=== PATIENT | male | born 1935 | race Caucasian/White ===

== ENCOUNTER 2017-04-24 05:17 | Day surgery (SDC) | payer MEDICARE, BC ==
[2017-04-21 10:21] VITALS: Ht 175.3 cm; Wt 86.6 kg
--- NOTE | 2017-04-23 15:28 | HP ---
Date/Time of Note Date/Time of Note DATE: 04/23/17 TIME: 15:25 Assessment/Plan VTE Prophylaxis VTE Prophylaxis Intervention: other HPI/ROS Admit Date/Time Admit Date/Time April 24, 2017 Hx of Present Illness Chief complaint: Left shoulder pain History: Mr. Friedman is a 82-year-old right-handed gentleman who is being admitted for rotator cuff surgery. He has a long history of ongoing shoulder pain. Past medical history: includes a history of cardiac events as well as prostate surgery for a cancer in the past. He also has a history of cardiac bypass as well as a total hip replacement. Social history/family history: He is a former smoker from [id number]. He drinks occasionally. He lives with his family and is . Medications: 1. Pantoprazole 2. Furosemide 3. Amiodarone 4. Atorvastatin 5. Aspirin 6. Entresto ALLERGIES: None Physical examination: The patient is healthy appearing in no respiratory distress who is alert and oriented with normal mood and affect. Hearing is intact; no hearing aid. No rashes or lesions noted. Cardiovascular and Neurological exam is intact with no numbness, edema with normal pulses and coordination. No lymphadenopathy or erythema is noted. He is 5 foot 9 inches tall and weighs 190 pounds. Cervical spine range of motion reveals full motion with right and left rotation , flexion and extension without significant asymmetry to either side. upper extremity evaluation reveals that the patient is neurologically intact from C5 to T1. There is no lymphedema and there is normal skin. There are 2+ ulnar and radial pulses with normal capillary refill. Active Range of motion is as follows: 120 Forward Flexion 80 Abduction 70 External Rotation 10 Internal Rotation Passive Range of motion is about the same and moderate subacromial crepitus is present. There is mild anterior pain and moderate lateral pain. There is pain in the bicipital groove. There is biceps deformity. There is pain over the AC joint. Instability assessment reveals that he has anterior translation, posterior translation and inferior translation. There is a apprehension, with a relocation sign. There is a OBriens sign Assessment of the rotator cuff reveals strength for the supraspinatus. Infraspinatus strength is and subscapularis strength is . There is a impingement sign. There is some mild atrophy in the supraspinatus fossa. Impression: Symptomatic rotator cuff tear and an active 82-year-old Plan: Surgery in the form of an arthroscopic rotator cuff repair. The patient has undergone cardiac clearance and he has no contraindications. PMH/Family/Social Past Medical History Medical History: no pertinent history Exam/Review of Systems Medications Medications Current Medications Cefazolin Sodium/ Dextrose (Ancef 2 Gm/50 ml (Pmx)) 50 ml @ 100 mls/hr PRE-OP IVPB ; Start 04/24/17 at 06:30; Stop 04/24/17 at 16:00 Tramadol HCl (Ultram) 50 mg PRE-OP PO ; Start 04/24/17 at 06:30; Stop at 16:00 Gabapentin 100 mg 100 mg PRE-OP PO ; Start 04/24/17 at 06:30; Stop 04/24/17 at 16:00 Tranexamic Acid/ Dextrose (Tranexamic Acid/ D5W) 108.7 ml @ 200 mls/hr PRE-OP IVPB ; Start 04/24/17 at 06:30; Stop 04/24/17 at 16:00 LETI ESQUEDA MD Apr 23, 2017 15:28
[~2017-04-24] VITALS: Ht 175.3 cm; Wt 86.6 kg
[2017-04-24] VITALS (10 sets, daily range): BP systolic 107–172; BP diastolic 51–77; PULSE 62–68; RESP 13–19
--- NOTE | 2017-04-24 04:58 | HPN ---
Date/Time of Note Date/Time of Note DATE: 04/24/17 TIME: 04:58 Interval H&P Admission Note Pt. seen H&P reviewed: No system changes LETI ESQUEDA MD Apr 24, 2017 04:58
[~2017-04-24 05:17] MED LIST: AMIO200T2 PO; ASPI-664 PO; ATOR40TA68 PO; BISO5TAB21 PO; FURO20TA3 PO; PANT40TA4 PO; RANO10002 PO; SACU1TAB7 PO; TAMS0.4C2 PO
--- NOTE | 2017-04-24 06:15 | RADRPT ---
PROCEDURE: XR Chest. CLINICAL INDICATION: Preop TECHNIQUE: AP Portable chest. COMPARISON: No pertinent prior examinations were submitted for comparison. FINDINGS: Left-sided ICD and sternotomy wires are visualized. The cardiomediastinal silhouette is normal.The aortic arch is calcified. No focal consolidation, ple ural effusion or pneumothorax is seen. The bones are demineralized. IMPRESSION: No radiographic evidence of acute cardiopulmonary disease. Aortic atherosclerosis. Prior CABG. Physician Krissy Date Time Electronically viewed and signed by Physician Krissy on 04/24/2017 06:15 CS/
[2017-04-24] MEDS ORDERED: traMADol 50 MG TAB PO SCH (06:30)
[2017-04-24] MEDS ORDERED: GABAPENTIN 100 MG CAP PO ONE (06:30)
[2017-04-24] MEDS ORDERED: CEFAZOLIN 2 GM/50 ML (PMX) 50 ML IVPB SCH (06:30)
[2017-04-24] MEDS ORDERED: TRANEXAMIC ACID IVPB SCH (06:30)
[2017-04-24] MEDS ORDERED: GABAPENTIN 300 MG CAP PO SCH (06:30)
[2017-04-24] MEDS ORDERED: DEXTROSE 5% IVPB SCH (06:30)
[2017-04-24] MEDS ORDERED: DEXAMETHASONE 4 MG/ML 1 ML INJ ONE (06:52)
[2017-04-24] MEDS ORDERED: ETOMIDATE 20 MG INJ ONE (06:52)
[2017-04-24] MEDS ORDERED: ONDANSETRON 4 MG INJ ONE (06:52)
[2017-04-24] MEDS ORDERED: ROPIVACAINE 0.2% 20 ML VIAL ONE (06:52)
[2017-04-24] MEDS ORDERED: FENTAnyl 50 MCG/ML VIAL ONE (06:52)
[2017-04-24] MEDS ORDERED: BUPIVACAINE 0.5%/EPI (SDV) 30 ML INJ ONE (06:54)
[2017-04-24] MEDS ORDERED: MIDAZOLAM 1 MG/ML 2 ML INJ ONE (06:54)
[2017-04-24] MEDS ORDERED: CEFAZOLIN 1 GM INJ ONE (07:15)
[2017-04-24] MEDS ORDERED: PHENYLephrine (100 MCG/ML) 5ML SYG ONE (07:20)
[2017-04-24] MEDS ORDERED: EPHEDrine SULFATE 50 MG/5 ML SYG ONE (07:50)
--- NOTE | 2017-04-24 07:55 | OPR ---
Date/Time of Note Date/Time of Note DATE: 04/24/17 TIME: 07:50 Operative Report Procedure Date: Apr 24, 2017 Preoperative Diagnosis Left shoulder rotator cuff tear Postoperative Diagnosis 1. Left shoulder massive rotator cuff tear 2. Left shoulder impingement 3. Left shoulder acromioclavicular joint arthritis Operation/Procedure Performed 1. Left shoulder arthroscopic distal clavicle excision 2. Left shoulder arthroscopic extensive debridement of glenohumeral joint 3. Left shoulder arthroscopic acromioplasty with coracoacromial ligament release. Surgeon see signature line [employer]ist Minesh Hodge PA-C Anesthesia Type: general Estimated Blood Loss: minimal Transfusion none Specimen None Grafts/Implants none Complications none Pt Condition Post Procedure: stable Disposition: PACU Procedure Description EMERGENCY ROOM TECHNICIAN SURGEON: Minesh Hodge PA-C was asked to be present at my request as a result of the significant surgical complexity associated with this procedure. Specifically, the arthroscopic resection of the femoral neck requires expert assistance with respect to the positioning of the arthroscope, which is a 70-degree arthroscope, while the surgeon exchanges instruments to perform the resection and labral repair. In my opinion, the assistance offered by a surgical scrub technician is not sufficient as a result of their lack of training with these instruments. Minesh should therefore be compensated for their time. PROCEDURE: Following the administration of general anesthesia supplemented with a scalene block, the patient was placed in the right lateral decubitus position. All prominences were padded appropriately including an axillary pad. The left shoulder was then prepped and draped in the usual sterile fashion. Anterior and posterior glenohumeral portals were established. Glenohumeral arthroscopy revealed a massive retracted rotator cuff tear that included the infraspinatus and supraspinatus. The retraction was beyond the glenoid. The biceps tendon appeared to be near completely torn with severe fraying in the interval. A portion of the superior subscapularis was also devitalized and debris and avulsed. The bulk of the subscapularis was intact. The glenoid and humeral articular cartilage revealed diffuse grade II and III chondromalacia with no tomás articular cartilage breakdown. The joint was then extensively debrided. The superior labrum was extensively debrided from the 10:00 to the 3 o'clock position and the biceps remnant was released as well. The intra-articular portion was resected. The diffuse rotator cuff tearing was then debrided down to stable tissue. This completed the extended debridement. The subacromial space was then entered and a very thickened coracoacromial ligament was released and a medial osteophyte was then resected completing an acromioplasty. This measured about 5 mm the medial edge of the acromion. The distal clavicle had severe arthritic changes. This area was then skeletonized for a distance of 10 mm and the distal clavicle was then excised for a distance of 10 mm. The joint was thoroughly irrigated. The arthroscopic equipment was then removed, following thorough irrigation of the joint to assure that all bony debris was cleared. The wounds were closed using #4-0 Monocryl sutures, followed by a sterile dressing. The patient was then placed in an UltraSling, extubated and transported to the recovery room in stable condition, having tolerated the procedure well. LETI ESQUEDA MD Apr 24, 2017 07:55
--- NOTE | 2017-04-24 07:56 | PDOCDIS ---
Discharge Instructions DIAGNOSIS Discharge Diagnosis Massive rotator cuff tear CONDITION Patient Condition: Good HOME CARE INSTRUCTIONS: Diet Instructions: Regular ACTIVITY: Activity Restrictions: Slowly Increase Activity Keep Limb Elevated Bathing Restrictions: Shower FOLLOW UP/APPOINTMENTS Follow-up Plan 2 weeks after surgery SCHOOL/WORK RELEASE May return to School/Work with: With Restrictions School/Work Release Comment: Sling as necessary for the next 10 days LETI ESQUEDA MD Apr 24, 2017 07:56
[2017-04-24] MEDS ORDERED: ONDANSETRON 4 MG INJ IV PRN (08:00)
[2017-04-24] MEDS ORDERED: OXYCODONE/ACETAMINOPHEN (5/325) TAB PO PRN ×2 (08:00)
[2017-04-24] MEDS ORDERED: EPHEDrine SULFATE 50 MG/5 ML SYG IV PRN (08:00)
[2017-04-24] MEDS ORDERED: HYDROmorphONE (0.2 MG/ML) 10ML SYG IV PRN ×3 (08:00)
== END 2017-04-24 10:27 | disposition home or self-care (01) ==
LOC: UNDOADMIN 05:17 → REC 05:17 → SDS 05:17 → UNDODISIN 10:27 → EDSTATUS 12:30
PROVIDERS: ATTEND Orthopaedic Surgery
DX: S46.012A Strain of muscle(s) and tendon(s) of the rotator cuff of left shoulder, initial encounter (principal); M75.42 Impingement syndrome of left shoulder; M19.012 Primary osteoarthritis, left shoulder; I25.10 Atherosclerotic heart disease of native coronary artery without angina pectoris; K21.9 Gastro-esophageal reflux disease without esophagitis; X58.XXXA Exposure to other specified factors, initial encounter; Y93.89 Activity, other specified; Y92.89 Other specified places as the place of occurrence of the external cause; Y99.8 Other external cause status
CPT/HCPCS: 29824; 29826; 71010; J0690; J1100; J2250; J2370; J2405; J2795; J3010